=== PATIENT | female | born 1950 | race African-American/Black ===

== ENCOUNTER 2022-12-30 09:17 | Emergency (ER) | payer MEDICARE, MEDICAID, SELFPAY ==
--- NOTE | ~2022-12-30 | XR_ITS ---
Left elbow Technique: AP, oblique, and lateral views were obtained. Clinical History: Pain Findings: There is severe osteoarthritis throughout the elbow joint. Small elbow joint effusion. Subt le fracture of the radial neck is difficult to completely excluded given the osteoarthritic change an d spurring present. Vascular calcifications are present. 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 Subtle radial neck fracture is very difficult to exclude due to the degenerative change present, with the presence of joint effusion. Consider follow-up exam or MR to further evaluate for fracture, as i ndicated. Reviewed, dictated and finalized at location M. 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 Subtle radial neck fracture is very difficult to exclude due to the degenerativ e change present, with the presence of joint effusion. Consider follow-up exam or MR to further evaluate for fracture, as indicated.
--- NOTE | ~2022-12-30 | CT_ITS ---
Noncontrast CT scan of the cervical spine Technique: Multiple contiguous axial [address] images of the cervical spine were obtained and rec onstructed in 2D sagittal and coronal planes on the acquisition scanner. Dose reduction technique was used on this scan by utilizing automated exposure control, adjustment of the mA and/or kV according to patient size. The dose-length product (DLP) was 380.15 mGy-cm. Clinical History: Pain Findings: No fractures or dislocations. There is moderate degenerative disc change at C5-C6. Probabl e mild bilateral neural foraminal narrowing at C5-C6. Probable disc osteophyte complex at C5-C6, with mild canal stenosis. No prevertebral soft tissue swelling. Possible partially imaged right pleural effusion at the right lung apex. Impression: No fracture or subluxation of the cervical spine. Degenerative change, predominantly at C5-C6, as detailed above. Possible partially imaged right pleural effusion versus right pleural thickening. Reviewed, dictated and finalized at [facility]. Impression: No fracture or subluxation of the cervical spine. Degenerative change, predominantly at C5-C6, as detailed above. Possible partially imaged right pleural effusion versus right pleural thickenin g.
--- NOTE | ~2022-12-30 | CT_ITS ---
Non-contrast Head CT History: Pain Technique: Axial non-contrast imaging of the brain was performed. Dose reduction technique was used on this scan by utilizing automated exposure control and iterative reconstruction technique. The dose -length product (DLP) was 605.33 mGy-cm. Findings: There is no evidence of intracranial hemorrhage, mass lesion, or acute infarct. Brain par enchyma appears normal. The ventricles and subarachnoid spaces are normal in size. The calvarium ap pears normal. The visualized paranasal sinuses and mastoid air cells are clear. Impression: No significant abnormality seen. Reviewed, dictated and finalized at location . Impression: No significant abnormality seen.
[2022-12-30 09:19] VITALS: BP 157/49; PULSE 66; RESP 16; TEMP 36.6; O2SAT 98
--- NOTE | 2022-12-30 09:19 | ECG_ITS ---
Measurements Intervals [place] Rate: 67 P: 25 RI: 186 QRS: -5 QRSD: 128 T: 30 QT: 413 QTc: 439 Interpretive Statements SINUS RHYTHM VOLTAGE CRITERIA FOR LVH [MEETS CRITERIA IN ONE OF: R(aVL), S(V1), R(V5), R(V5/V6)+S(V1)] ABNORMAL ECG NO PREVIOUS ECG AVAILABLE FOR COMPARISON Electronically Signed On 12-30-2022 14:51:15 CDT by Lion Flores M.D.
--- NOTE | 2022-12-30 09:27 | ED.FALL ---
HPI - Fall General Chief Complaint: Fall Stated Complaint: FALL, FROM DIALYSIS Time Seen by Provider: 12/30/22 09:18 History of Present Illness HPI Narrative: Pt from dialysis after removal of 3.5L of fluid. Pt had ground level fall at 0430 this morning and landed on left side. Pt complains of pain in left elbow and back of head and neck. Pt has some pain in her thighs but this started after dialysis. Pt denies CP or SOB. Related Data Allergies Allergy/AdvReac Type Severity Reaction Status Date / Time duloxetine [From Cymbalta] Allergy Rash Verified 12/30/22 09:29 Review of Systems Review of Systems: All systems reviewed & are unremarkable except as noted in HPI and below Exam Const: General: no acute distress Nutritional Appearance: well nourished Orientation/consciousness: patient oriented x3 Limitations: no limitations HENMT: Head: normal to inspection Mouth: Yes Normal oral and palatal mucosa present Neck: Neck: normal visual inspection Other: n midline tenderness some left sided tenderness Chest: Chest palpation & inspection: normal inspection of the chest Resp: Effort & Inspection: normal respiratory effort Auscultation: clear to auscultation bilaterally Cardio: Rate: regular rate Rhythm: regular rhythm GI: Auscultation: normal bowel sounds Skin: General skin exam: normal color Wounds: no wounds Neuro: General: patient oriented x3, moves all extremities and no focal motor deficits Speech: normal speech Extrem: Other: tender left elbow Psych: Mental Status: mental status grossly normal Affect: normal affect Attitude: cooperative Course Vital Signs Vital signs: Vital Signs Temperature 97.9 F 12/30/22 09:19 Pulse Rate 66 12/30/22 09:19 Respiratory Rate 16 12/30/22 09:19 Blood Pressure 157/49 H 12/30/22 09:19 Pulse Oximetry 98 12/30/22 09:19 Oxygen Delivery Room Air 12/30/22 09:19 Temperature 97.9 F 12/30/22 09:19 Pulse Rate 63 12/30/22 12:55 Respiratory Rate 18 12/30/22 12:55 Blood Pressure 158/51 H 12/30/22 12:55 Pulse Oximetry 99 12/30/22 12:55 Oxygen Delivery Room Air 12/30/22 09:19 MDM - Fall MDM Narrative Medical decision making narrative: complaints all related to fall. pt has no sob or cp so will not order labs but will get x ray of left elbow and CT of head and C spine. c spine oa, brain ok, elbow x ray shows OA no definite fx but possible radial head difficult to exclude. pt does have some tenderness to radial head on exam so will sling and have follow up with pcp for recheck and possible MRI if still having pain. will prescribe pain meds and muscle relaxers. ECG Data EKG #1: Interpretation: nsr rate 67, moderate intraventricular conduction delay, lvh no prior ekg for comparison Discharge Plan Discharge Clinical Impression: Neck strain Patient Disposition: Home, Self-Care Condition: Stable Instructions: Antibiotic Form, Cervical Strain (DC), Elbow Sprain (ED) Additional Instructions: sling for comfort. follow up with PCP for recheck of elbow in 7 days. Prescriptions: New acetaminophen-codeine 300-15 mg tablet 1 tablet PO Q8H PRN (Reason: pain) Qty: 10 0RF cyclobenzaprine 5 mg tablet 5 mg PO TID PRN (Reason: muscle spasm) Qty: 10 0RF Follow-up/Referrals: Arline Verdugo MD [Physician] - PHYSICIAN,FEDERAL MEDIATOR [Non-Staff] -
[2022-12-30 10:43] VITALS: BP 161/57; PULSE 63; RESP 16; O2SAT 98
[2022-12-30 12:55] VITALS: BP 158/51; PULSE 63; RESP 18; O2SAT 99
== END 2022-12-30 13:29 | disposition home or self-care (01) ==
PROVIDERS: Emergency Provider Emergency Medicine
DX: S16.1XXA Strain of muscle, fascia and tendon at neck level, initial encounter (principal); S59.902A Unspecified injury of left elbow, initial encounter; Z99.2 Dependence on renal dialysis; M81.0 Age-related osteoporosis without current pathological fracture; W18.30XA Fall on same level, unspecified, initial encounter
CPT/HCPCS: 70450; 72125; 73080; 93005; 99284; A4565

== ENCOUNTER 2023-03-07 09:47 | Emergency (ER) | payer MEDICARE, MEDICAID, SELFPAY ==
[2023-03-07] VITALS (9 sets, daily range): BP systolic 169–185; BP diastolic 55–75; PULSE 71–82; RESP 11–18; TEMP 36.6; O2SAT 96–100
--- NOTE | ~2023-03-07 | CT_ITS ---
EXAMINATION: CT BRAIN W/O DATE: 03/07/2023 10:31 INDICATION: Vertigo TECHNIQUE: Computed tomography (CT) of the head was performed without intravenous contrast. The dose- length product was 605.33 mGy-cm. CT dated 12/30/2022 COMPARISON: CT dated 12/30/2022 FINDINGS: Normal brain parenchymal volume for age. Normal romero-white differentiation. No acute intrac ranial hemorrhage, infarction, mass or mass effect. There are scattered mild periventricular and subc ortical white matter changes, most likely related to small vessel ischemic disease (microangiopathy). No ventriculomegaly or midline shift. Midline sagittal images demonstrate a normal corpus callosum, c raniovertebral junction and sella turcica. Basilar cisterns are patent. Paranasal sinuses and mastoids are pneumatized. No depressed skull fractures. IMPRESSION: 1. No acute intracranial abnormality. Reviewed, dictated and finalized at location A. TRICAL AND INSTRUMENT ENGINEER
--- NOTE | 2023-03-07 09:58 | ED.GENADULT ---
HPI - General Adult General Chief complaint: Dizziness Stated complaint: dizzy History of Present Illness HPI narrative: 73-year-old female presenting to the emergency department for evaluation for onset of vertigo. Patient does have a prior history of vertigo and states while she was at dialysis she had onset of dizziness that she felt was similar to her vertigo. Patient states that when she closes her eyes symptoms do improve. Patient denies any recent cough cold fevers falls or injuries Related Data Allergies Allergy/AdvReac Type Severity Reaction Status Date / Time duloxetine [From Cymbalta] Allergy Rash Verified 12/30/22 09:29 Review of Systems Review of Systems: All systems reviewed & are unremarkable except as noted in HPI and below Exam Narrative: APPEARANCE: Well appearing, no pain, no distress, well-nourished. HEAD: normocephalic, atraumatic. EYES: PERRLA/EOMI, conjunctivae clear. NOSE: Normal no drainage NECK: Supple. No adenopathy, no masses. RESPIRATORY: Airway patent, respirations nonlabored. Clear to auscultation bilaterally, no rales, rhonchi, wheezing. CARDIOVASCULAR: Regular rate and rhythm without murmurs rubs or gallops. ABDOMINAL: Soft, nontender, nondistended, normal bowel sounds MUSCULOSKELETAL: Moves all extremities. Strength/ROM intact, No edema, No calf tenderness. NEURO: Alert. Cranial nerves II through XII intact. Grossly intact SKIN: Warm, dry. Normal Color Course Course Emergency Course: 73-year-old female presenting to the emergency department for onset of vertigo. Patient was treated with 25 mg of p.o. meclizine. Patient states that the dizziness did resolve with the meclizine. Patient denies any symptoms of vertigo at this time. Patient was afebrile with no leukocytosis and a stable hemoglobin of 10.7. Patient does do dialysis and patient's CMP is as expected. Patient was negative for influenza RSV and for COVID. Head CT showed no acute intracranial abnormality. Patient reports he feels improved and is comfortable the plan for discharge to home. All questions concerns were addressed Vital Signs Vital signs: Vital Signs Temperature 97.9 F 03/07/23 10:02 Pulse Rate 77 03/07/23 10:02 Respiratory Rate 18 03/07/23 10:02 Blood Pressure 181/55 H 03/07/23 10:02 Pulse Oximetry 100 12/29/23 10:02 Oxygen Delivery Room Air 03/07/23 10:02 Temperature 97.9 F 03/07/23 15:01 Pulse Rate 71 03/07/23 15:01 Respiratory Rate 16 03/07/23 15:01 Blood Pressure 181/67 H 03/07/23 15:01 Pulse Oximetry 100 03/07/23 13:51 Oxygen Delivery Room Air 03/07/23 10:02 Medical Decision Making Differential Diagnosis Differential Diagnosis: Central vertigo, benign positional vertigo, peripheral vertigo, dizziness Vital Signs Vital Signs: Vital Signs Temperature 97.9 F 03/07/23 10:02 Pulse Rate 77 03/07/23 10:02 Respiratory Rate 18 03/07/23 10:02 Blood Pressure 181/55 H 03/07/23 10:02 Pulse Oximetry 100 03/07/23 10:02 Oxygen Delivery Room Air 03/07/23 10:02 Temperature 97.9 F 03/07/23 15:01 Pulse Rate 71 03/07/23 15:01 Respiratory Rate 16 03/07/23 15:01 Blood Pressure 181/67 H 03/07/23 15:01 Pulse Oximetry 100 03/07/23 13:51 Oxygen Delivery Room Air 03/07/23 10:02 Lab Data Lab results reviewed: Yes I reviewed the patient's lab results. 03/07/23 10:45 03/07/23 10:45 Labs: Lab Results 03/07/23 Range/Units 10:45 WBC 5.5 (4.5-10.0) K/mm3 RBC 3.62 L (4.2-5.4) M/mm3 Hgb 10.7 L (12.0-15.0) g/dL Hct 34.1 L (37.0-47.0) % MCV 94.2 (80-100) fl MCH 29.6 (26-34) pg MCHC 31.4 L (32-36) g/dl RDW 14.1 (11.5-14.5) % Plt Count 170 (150-375) k/mm3 MPV 9.5 (7.4-10.4) fl Immature Gran % (Auto) 0.4 (0-0.5) % Neut % (Auto) 69.3 (45.5-73.1) % Lymph % (Auto) 14.3 L (18.3-44.2) % [place] % (Auto) 10.1 H (2.6-8.5) % Eos % (Auto) 5.2 H (0-4.4) % Baso
[2023-03-07] MEDS: MECLIZINE HCL 25 MG TABLET PO (10:37)
[2023-03-07 11:01] LABS: Basophils Percent Auto 0.7 % (0.2-1.2); Eosinophils Absolute Auto 0.3 K/mm3 (0-0.3); Eosinophils Percent Auto 5.2 % (0-4.4); Hematocrit 34.1 % (37.0-47.0); Hemoglobin 10.7 g/dL (12.0-15.0); Immature Granulocyte Absolute 0.02 K/mm3 (0.00-0.031); Immature Granulocyte Percent A 0.4 % (0-0.5); Lymphocytes Absolute Auto 0.79 K/mm3 (0.9-3.2); Lymphocytes Percent Auto 14.3 % (18.3-44.2); Mean Corpuscular HGB Conc 31.4 g/dl (32-36); Mean Corpuscular Hemoglobin 29.6 pg (26-34); Mean Corpuscular Volume 94.2 fl (80-100); Mean Platelet Volume 9.5 fl (7.4-10.4); Monocytes Absolute Auto 0.6 K/mm3 (0.1-0.6); Monocytes Percent Auto 10.1 % (2.6-8.5); Neutrophils Absolute Auto 3.8 K/mm3 (1.3-6.7); Neutrophils Percent Auto 69.3 % (45.5-73.1); Platelet Count Result 170 k/mm3 (150-375); Red Blood Count 3.62 M/mm3 (4.2-5.4); Red Cell Distribution Width 14.1 % (11.5-14.5); White Blood Count 5.5 K/mm3 (4.5-10.0)
[2023-03-07 11:15] LABS: Alanine Aminotransferase 16 U/L (6-35); Albumin Level 4.3 g/dL (3.5-5.1); Alkaline Phosphatase 71 U/L (38-126); Anion Gap 12 mmol/L (8-16); Aspartate Amino Transferase 37 U/L (14-36); Bilirubin,Total 0.8 mg/dL (0.2-1.3); Blood Urea Nitrogen 46 mg/dL (7-17); Calcium 9.6 mg/dL (8.4-10.2); Carbon Dioxide 31 mmol/L (22-30); Chloride 95 mmol/L (98-107); Estimated CRCL calculation 8 ml/min; Estimated Glomerular Filt Rate 8; Glucose 119 mg/dL (65-110); Potassium 4.1 mmol/L (3.4-5.0); Sodium 138 mmol/L (137-145)
[2023-03-07 11:36] LABS: Influenza A QL RT-PCR Negative (Negative); Influenza B QL RT-PCR Negative (Negative); RSV RNA, RT-PCR Negative (Negative); SARS-CoV-2 RNA PCR Negative (Negative)
[2023-03-07] MEDS: ACETAMINOPHEN 325 MG TABLET 650 MG PO (15:20)
== END 2023-03-07 15:26 | disposition home or self-care (01) ==
PROVIDERS: Emergency Provider Emergency Medicine
DX: H81.10 Benign paroxysmal vertigo, unspecified ear (principal); Z20.822 Contact with and (suspected) exposure to COVID-19
CPT/HCPCS: 36415; 70450; 80053; 85025; 87637; 99284; A9270

== ENCOUNTER 2023-04-29 20:50 | Inpatient (IN) | payer MEDICARE, MEDICAID, SELFPAY ==
[2023-04-29] VITALS (18 sets, daily range): BP systolic 160–175; BP diastolic 51–74; PULSE 81–156; RESP 19–35; TEMP 36.6–36.9; O2SAT 92–99
--- NOTE | ~2023-04-29 | XR_ITS ---
EXAMINATION: XR chest 1V portable DATE: 04/29/2023 21:11 INDICATION: COVID-19 pneumonia. TECHNIQUE: A single frontal view of the chest was obtained. COMPARISON: None. FINDINGS: There are mild airspace opacities in right mid and lower lung zones. No pleural effusion or pneumothorax. The heart size is normal. There is a vascular stent in left upper limb. There is a vas cular stent in left chest. IMPRESSION: 1. Mild airspace opacities in right mid and lower lung zones, consistent with atelectasis versus pneu monia versus mild pulmonary edema. Reviewed, dictated and finalized at location E. ITE RENEWAL INSPECTOR IMPRESSION: 1. Mild airspace opacities in right mid and lower lung zones, consistent with a telectasis versus pneumonia versus mild pulmonary edema.
--- NOTE | ~2023-04-29 | CT_ITS ---
EXAMINATION: CTA chest PE protocol DATE: 04/29/2023 22:19 INDICATION: Hypoxia. TECHNIQUE: Computed tomography angiography (CTA) of the chest was performed with 100 mL Omnipaque-350 intravenous contrast timed to evaluate the pulmonary arteries. Coronal maximum intensity projection 3D-reconstructions were created by the technologist. Automated exposure control and iterative reconst ruction technique were employed. The dose-length product was 552.41 mGy-cm. COMPARISON: None. FINDINGS: There is smooth septal thickening, consistent with mild pulmonary edema. Calcified right alonzo ng nodules and calcified right hilar lymph nodes are consistent with old granulomatous disease. There is a cluster of centrilobular nodules in right lower lobe. There is mild atelectasis versus scarring in anterior segment right upper lobe. There are small pleural effusions. The heart size is normal. T here are coronary artery calcifications. No pericardial effusion. There is no pulmonary embolus. Ther e are widespread arterial calcifications. There is a 17 mm mass in right adrenal gland. There is a pa tent stent in left subclavian and brachiocephalic veins. There are bridging endplate osteophytes at m ultiple levels in the spine, consistent with diffuse idiopathic skeletal hyperostosis (DISH). There i s mild thoracic spondylosis. IMPRESSION: 1. No pulmonary embolus. 2. Mild pulmonary edema. 3. Small pleural effusions. 4. Cluster of centrilobular nodules in right lung lower lobe, consistent with mild infection. 5. 17 mm mass in right adrenal gland. In the absence of known malignancy, this finding is likely an a denoma. Reviewed, dictated and finalized at location E. T SPECIALIST IMPRESSION: 1. No pulmonary embolus. 2. Mild pulmonary edema. 3. Small pleural effusions. 4. Cluster of centrilobular nodules in right lung lower lobe, consistent with m ild infection. 5. 17 mm mass in right adrenal gland. In the absence of known malignancy, this finding is likely an adenoma.
--- NOTE | 2023-04-29 20:48 | PC.NURSE ---
unable to collect UA as patient does not produce urine. provider aware
--- NOTE | 2023-04-29 21:09 | ED.GENADULT ---
HPI - General Adult General Chief complaint: Shortness of Breath/Dyspnea Stated complaint: SOB, MISSED HD, COVID+, HTN History of Present Illness HPI narrative: 73-year-old female presenting to the emergency department for evaluation of increased generalized weakness cough and shortness of breath. Patient began feeling poorly on Friday in the symptoms worsened through Friday. Patient reports her symptoms were so bad that on Friday she was not able to present to her dialysis. Patient does dialysis on Friday and Friday. Patient follows up with Dr. Turner in [place]. Patient was hypoxic when EMS arrived. Patient's oxygenation was improved at rest in bed. Patient did report some shortness of breath that improve, patient denies any chest pain. Related Data Home Medications Medication Instructions Recorded Confirmed amlodipine 10 mg-benazepril 40 mg 1 cap PO DAILY 04/30/23 04/30/23 capsule carvedilol 12.5 mg tablet 12.5 mg PO BID 04/30/23 04/30/23 gabapentin 100 mg capsule 200 mg PO DAILY 04/30/23 04/30/23 vitamin B complex-vitamin C-folic 1 tablet PO DAILY 04/30/23 04/30/23 acid 0.8 mg tablet (Shannan-Aubree) Allergies Allergy/AdvReac Type Severity Reaction Status Date / Time duloxetine [From Cymbalta] Allergy Rash Verified 04/29/23 20:48 Review of Systems Review of Systems: All systems reviewed & are unremarkable except as noted in HPI and below PMFSH Past Medical History Medical History (Updated 04/30/23 @ 15:28 by Demi Flores MD) End-stage renal disease on hemodialysis Social History Social History Smoking status: Never smoker Alcohol intake: never Substance use: never Substance use type: does not use Do You Feel Safe in your Home?: Yes Lack of Transportation: No Lack of Food: Never True Current Housing: I Have Housing Concerned About Future Housing: No Difficulty Paying Gas/Electric Bills: No Difficulty Paying for Meds: No Currently Unemployed: No Education: High School Diploma/GED Difficulty w/ Childcare or Family Care: No Spiritual care concerns: No Exam Narrative: APPEARANCE: Well appearing, no pain, no distress, well-nourished. HEAD: normocephalic, atraumatic. EYES: PERRLA/EOMI, conjunctivae clear. NOSE: Normal no drainage EARS:TMS clear with good light reflex. THROAT: Pharynx clear, no exudate. NECK: Supple. No adenopathy, no masses. RESPIRATORY: Airway patent, respirations nonlabored. Clear to auscultation bilaterally, no rales, rhonchi, wheezing. CARDIOVASCULAR: Regular rate and rhythm without murmurs rubs or gallops. ABDOMINAL: Soft, nontender, nondistended, normal bowel sounds MUSCULOSKELETAL: Moves all extremities. Strength/ROM intact, No edema, No calf tenderness. NEURO: Alert. Cranial nerves II through XII intact. Good gait. Good coordination SKIN: Warm, dry. Normal Color PSYCHIATRIC: Normal affect/mood. Course Course Emergency Course: 73-year-old female history chronic renal failure on dialysis, patient does not make urine. Patient did miss her dialysis on Friday. Patient was mildly hypoxic in the emergency department but did improve on oxygenation. Patient is afebrile with no leukocytosis. Patient does have a hemoglobin of 9.3 with a previous baseline of 10.7. He on patient's CMP her potassium was 5.2 with an elevated BUN and creatinine. Patient was treated with albuterol, bicarb and Lokelma for the hyperkalemia. CT scan was ordered to rule out for pulmonary embolism due to the mild tachycardia and hypoxia along with COVID and D-dimer was elevated, CTA was ordered and showed no evidence of pulmonary embolism but did show concern for underlying infection. Blood cultures were ordered and patient was started on antibiotics. Nephrology was consulted and they did feel they would be able to do dialysis tomorrow. Case discussed with hospitalist and patient was accepted for admission to the IMU. Vital Signs Vital signs: Vital Sign
[2023-04-29 21:29] LABS: Basophils Percent Auto 0.2 % (0.2-1.2); Eosinophils Absolute Auto 0.2 K/mm3 (0-0.3); Eosinophils Percent Auto 3.7 % (0-4.4); Hematocrit 29.5 % (37.0-47.0); Hemoglobin 9.3 g/dL (12.0-15.0); Immature Granulocyte Absolute 0.02 K/mm3 (0.00-0.031); Immature Granulocyte Percent A 0.4 % (0-0.5); Lymphocytes Absolute Auto 0.47 K/mm3 (0.9-3.2); Lymphocytes Percent Auto 8.6 % (18.3-44.2); Mean Corpuscular HGB Conc 31.5 g/dl (32-36); Mean Corpuscular Hemoglobin 30.3 pg (26-34); Mean Corpuscular Volume 96.1 fl (80-100); Mean Platelet Volume 9.7 fl (7.4-10.4); Monocytes Absolute Auto 0.8 K/mm3 (0.1-0.6); Monocytes Percent Auto 13.8 % (2.6-8.5); Neutrophils Percent Auto 73.3 % (45.5-73.1); Platelet Count Result 120 k/mm3 (150-375); Red Blood Count 3.07 M/mm3 (4.2-5.4); Red Cell Distribution Width 14.3 % (11.5-14.5); White Blood Count 5.4 K/mm3 (4.5-10.0)
[2023-04-29] MEDS: ALBUTEROL SULFATE NEB 2.5 MG/3 ML INH INHALATION (21:30)
[2023-04-29 21:39] LABS: INR 1.1; Prothrombin Time 14.6 Seconds (11.1-14.7)
[2023-04-29 21:40] LABS: Partial Thromboplastin Time 30.8 SECONDS (22.3-36.8)
[2023-04-29 21:41] LABS: Alanine Aminotransferase 10 U/L (6-35); Albumin Level 3.8 g/dL (3.5-5.1); Alkaline Phosphatase 67 U/L (38-126); Anion Gap 13 mmol/L (8-16); Aspartate Amino Transferase 26 U/L (14-36); Bilirubin,Total 0.7 mg/dL (0.2-1.3); Blood Urea Nitrogen 89 mg/dL (7-17); Calcium 9.4 mg/dL (8.4-10.2); Carbon Dioxide 26 mmol/L (22-30); Chloride 102 mmol/L (98-107); Glucose 170 mg/dL (65-110); Potassium 5.2 mmol/L (3.4-5.0); Sodium 141 mmol/L (137-145)
[2023-04-29 21:53] LABS: Estimated CRCL calculation 4 ml/min; Estimated Glomerular Filt Rate 3
--- NOTE | 2023-04-29 22:51 | PM.IMHP ---
H&P: HPI History of Present Illness Date/Time: 04/29/23 22:51 Chief Complaint: shortness of breath Narrative: This is a 75-year-old female with past medical history significant for end-stage renal disease on hemodialysis, Friday, patient presents to emergency room due to shortness of breath, generalized weakness, body aches and pains, poor appetite. Missed her last dialysis treatment. Patient was found to have lung infiltrate and tested positive for COVID-19 patient also was found to have a potassium of 5.2. Ruled out for pulmonary embolism with negative CTA. Patient has been admitted for further evaluation management and treatment. EXAMINATION: XR chest 1V portable DATE: 04/29/2023 21:11 INDICATION: COVID-19 pneumonia. TECHNIQUE: A single frontal view of the chest was obtained. COMPARISON: None. FINDINGS: There are mild airspace opacities in right mid and lower lung zones. No pleural effusion or pneumothorax. The heart size is normal. There is a vascular stent in left upper limb. There is a vascular stent in left chest. IMPRESSION: 1. Mild airspace opacities in right mid and lower lung zones, consistent with atelectasis versus pneumonia versus mild pulmonary edema. EXAMINATION: CTA chest PE protocol DATE: 04/29/2023 22:19 INDICATION: Hypoxia. TECHNIQUE: Computed tomography angiography (CTA) of the chest was performed with 100 mL Omnipaque-350 intravenous contrast timed to evaluate the pulmonary arteries. Coronal maximum intensity projection 3D-reconstructions were created by the technologist. Automated exposure control and iterative reconstruction technique were employed. The dose-length product was 552.41 mGy-cm. COMPARISON: None. FINDINGS: There is smooth septal thickening, consistent with mild pulmonary edema. Calcified right lung nodules and calcified right hilar lymph nodes are consistent with old granulomatous disease. There is a cluster of centrilobular nodules in right lower lobe. There is mild atelectasis versus scarring in anterior segment right upper lobe. There are small pleural effusions. The heart size is normal. There are coronary artery calcifications. No pericardial effusion. There is no pulmonary embolus. There are widespread arterial calcifications. There is a 17 mm mass in right adrenal gland. There is a patent stent in left subclavian and brachiocephalic veins. There are bridging endplate osteophytes at multiple levels in the spine, consistent with diffuse idiopathic skeletal hyperostosis (DISH). There is mild thoracic spondylosis. IMPRESSION: 1. No pulmonary embolus. 2. Mild pulmonary edema. 3. Small pleural effusions. 4. Cluster of centrilobular nodules in right lung lower lobe, consistent with mild infection. 5. 17 mm mass in right adrenal gland. In the absence of known malignancy, this finding is likely an adenoma. Review of Systems Review of Systems: Shortness of breath, generalized weakness Constitutional: Constitutional: Reports weakness Eyes: Eyes: Denies change in vision ENT: Denies dysphagia, Denies dizziness and Denies odynophagia Cardiovascular: Cardiovascular: Denies chest pain at rest, Denies lightheadedness, Denies radiating jaw, neck or arm pain and Denies palpitations Respiratory: Respiratory: Reports dyspnea on exertion Gastrointestinal: Gastrointestinal: Denies abdominal pain, Denies diarrhea, Denies nausea and Denies vomiting Genitourinary: Genitourinary: Denies dysuria Musculoskeletal: Musculoskeletal: Reports muscle weakness Integumentary/Breasts: Skin/Breast: Denies rash Neurologic: Denies focal weakness and Denies Sensory deficit (Neuro) Psychiatric: Psychiatric: Reports no additional psychiatric complaints and Reports as per HPI Endocrine: Endocrine: Denies increase in ring/shoe/hat size, Denies polyphagia, Denies polydipsia and Denies palpitations Hematologic/Lymphatic: Hematologic/Lymphatic: Reports no additional hematologic
[2023-04-29] MEDS: SODIUM BICARBONATE 8.4% 50 MEQ/50 ML SYRINGE IV PUSH (22:52)
[2023-04-29] MEDS: dexAMETHasone SOD PHOS INJ 10 MG/ML 1 ML VIAL IV PUSH (22:53)
--- NOTE | 2023-04-29 23:35 | PC.NURSE ---
Patient is unable to produce urine at all
[2023-04-29 23:43] LABS: Hepatitis B Surface Antigen Negative (Negative)
[2023-04-29] MEDS: AZITHROMYCIN 500 MG/NS 250 ML 500 MG/250 ML BAG 250 MG IVPB (23:59)
[2023-04-30] VITALS (32 sets, daily range): BP systolic 136–206; BP diastolic 47–97; PULSE 61–78; RESP 16–22; TEMP 36.1–37.1; O2SAT 92–100; BMI 36.6
[2023-04-30 00:01] LABS: Hepatitis B Surface Anti Res Positive
[2023-04-30 00:20] LABS: Influenza A QL RT-PCR Negative (Negative); Influenza B QL RT-PCR Negative (Negative); RSV RNA, RT-PCR Negative (Negative); SARS-CoV-2 RNA PCR Positive (Negative)
--- NOTE | 2023-04-30 01:19 | ADMGEN ---
This patient, Maria Alejandra Tolentino, was admitted to IMU Room 200-01. Patient/family oriented to hospital policies and general routines including ID bracelet, bed and alarms, visiting hours, pain management, procedures, bathroom and other care routines, personal items, smoking policy, room service/diet, and visiting hours. Information on how to activate the Rapid Response Team has been discussed. Patient/Family are encouraged to report perceived risks to care and to ask questions if they do not understand what they are told or what they should do.
[2023-04-30 02:47] LABS: MRSA (PCR) NOT DETECTED (NOT DETECTE)
[2023-04-30] MEDS: carvediloL 12.5 MG TABLET PO ×2 (08:43→22:36)
[2023-04-30] MEDS: amLODIPine BESYLATE 5 MG TABLET 10 MG BY MOUTH (08:44)
[2023-04-30] MEDS: GABAPENTIN 100 MG CAPSULE 200 MG PO (08:44)
[2023-04-30] MEDS: VITAMIN B CMPLX/VIT C/FOLIC AC 1 CAPSULE 1 CAP PO (08:44)
[2023-04-30] MEDS: lisinopriL 20 MG TABLET 40 MG PO (08:44)
--- NOTE | 2023-04-30 10:56 | PC.NURSE ---
Pt to dialysis today at 0900
--- NOTE | 2023-04-30 12:20 | PM.CNNEP ---
Assessment and Plan Assessment and plan (1) End stage renal disease: Code(s): N18.6 - End stage renal disease Status: Chronic Assessment and Plan: HD today continue Fri/Fri/Friday outpatient dialysis schedule follow electrolytes, volume status, and clearance (2) Pneumonia: Code(s): J18.9 - Pneumonia, unspecified organism Status: Acute Assessment and Plan: suggested by admission imaging on antibiotics follow culture data (3) Hyperkalemia: Code(s): E87.5 - Hyperkalemia Status: Acute Assessment and Plan: due to missed dialysis treatment s/p medical management further correction with dialysis follow repeat levels (4) COVID-19: Code(s): U07.1 - COVID-19 Status: Acute Assessment and Plan: positive testing on admission no evidence of hypoxia currently continue supportive therapy (5) Hypertension: Code(s): I10 - Essential (primary) hypertension Status: Chronic Assessment and Plan: elevated at this time dialysis should help resume home medications follow trend of hemodynamics (6) Anemia: Code(s): D64.9 - Anemia, unspecified Status: Chronic Assessment and Plan: due to ESRD Epogen with HD follow H/H I will continue follow patient with you while she remains hospitalized to make further recommendations as deemed necessary. Thank you for allowing me to participate in the care of this patient. History of Present Illness Reason for Consult Consult date: 04/30/23 Reason for consult: end stage renal disease Chief Complaint Chief complaint: Hyperkalemia, Hypoxia, COVID, Pneumonia History of Present Illness Narrative: The patient is a 73-year-old female with a past medical history as outlined below who presented to [facility] Emergency room with complaints of generalized weakness and shortness of breath. The patient states that she started feeling poorly last Friday with these symptoms in association with cough. The symptoms continued to worsen throughout the weekend and by Friday, she reported that she felt quite bad. Due to these symptoms, she did not go to her scheduled dialysis treatment on Friday. Given these ongoing symptoms, EMS was called and she was transported to the emergency room for further assessment. By the time of EMS arrival, she was reportedly hypoxic and supplemental oxygen was applied. However by the time of her arrival to the emergency room, her oxygenation normalized and she did not require any further supplemental oxygen. She once again indoor strict shortness of breath but denied any other acute symptoms. Routine blood test demonstrated labs consistent with her known history of end-stage renal disease but with a potassium was mildly elevated 5.2. Viral testing demonstrated she was COVID-19 positive as well. Given the persistence of her shortness of breath, she underwent a CT angiogram of the chest which did not demonstrate any evidence of a pulmonary embolism. Given her constellation of symptoms, she was admitted the hospital for further evaluation and therapy. Since her admission, she received medical management for her mildly elevated potassium level and was impaired least art on antibiotics for the presumption of pneumonia. She was not initiated any type of therapy with regard to her COVID-19 infection since she was not hypoxic. Renal consultation was requested due to her known history of end-stage renal disease. The patient normally dialyzes on a Friday, Friday, Friday schedule at [facility] under the care of Dr. Shaw. as mentioned above, she missed her dialysis treatment on Friday due to how poorly she felt with the symptoms that led to her presentation to the emergency room. In spite of her mildly elevated potassium level, she had no critical electrolyte abnormalities, acid-base disorder, or evidence of volume overl
[2023-04-30] MEDS: EPOETIN ALFA-EPBX 10,000 UNITS/ML VIAL 10000 UNITS IV PUSH (12:30)
--- NOTE | 2023-04-30 15:05 | PM.IMPN ---
Progress Note: A&P Assessment and Plan (1) Pneumonia: Code(s): J18.9 - Pneumonia, unspecified organism Status: Acute Assessment and Plan: Patient started on Rocephin and Zithromax Cultures in progress (2) End-stage renal disease on hemodialysis: Code(s): N18.6 - End stage renal disease; Z99.2 - Dependence on renal dialysis Status: Acute Assessment and Plan: Nephrology consult Dialysis soon creat is over 13 (3) COVID-19: Code(s): U07.1 - COVID-19 Status: Acute Assessment and Plan: Supportive care (4) Hypoxia: Code(s): R09.02 - Hypoxemia Status: Acute Assessment and Plan: Supplemental oxygen by nasal cannula pt not needing oxygen overnite (5) Acute hyperkalemia: Code(s): E87.5 - Hyperkalemia Status: Acute Assessment and Plan: potassium over 5 pt had lokelma and sodium bicarbondate drip Subjective Date/time seen: 04/30/23 15:05 Interval history: 75-year-old female with past medical history significant for end-stage renal disease on hemodialysis, Friday, patient presents to emergency room due to shortness of breath, generalized weakness, body aches and pains, poor appetite.? Missed her last dialysis treatment.? Patient was found to have lung infiltrate and tested positive for COVID-19 patient also was found to have a potassium of 5.2.? Ruled out for pulmonary embolism with negative CTA. Pt has pneumonia and COVID Pt is not needing any oxygen Pt creat is high and potassium is over 5 nephrology consulted Review of Systems Review of Systems: Shortness of breath, generalized weakness Exam Const: General: comfortable, no acute distress, well developed, alert, awake, ill appearing chronically and average body habitus Nutritional Appearance: average body habitus Orientation/consciousness: patient oriented x3 Resp: Effort & Inspection: normal respiratory effort and able to speak in complete sentences Auscultation: crackles, rales and wheezes Cardio: Jugular venous distension: no JVD Rate: regular rate Rhythm: regular rhythm Heart sounds: S1 normal heart sound present and S2 normal heart sound present Skin: Rashes: no rashes Wounds: no wounds Neuro: General: patient oriented x3 and CN's II-XI intact bilaterally Cranial nerves: Yes CN's II-XII intact bilaterally and Yes Equal, round and reactive pupils present Cognition (Neuro): normal cognition Speech: normal speech Gait exam (Neuro): Normal gait present Motor exam (neuro): 5/5 motor strength present throughout Sensory Exam: No Sensory deficit (Neuro) Extrem: General: normal to inspection, full ROM, no joint enlargement and no pedal edema Objective Data Vital Signs Vital Signs: Vital Signs - 24 hr 04/29/23 20:32 04/29/23 20:42 04/29/23 20:38 Temperature 36.9 C Pulse Rate 93 106 H Respiratory Rate 27 H 35 H Blood Pressure 174/60 H Pulse Oximetry 94 99 92 Oxygen Delivery Room Air Nasal Cannula Oxygen Flow Rate 1 04/29/23 20:39 04/29/23 20:45 04/29/23 21:30 Temperature Pulse Rate 98 119 H 114 H Respiratory Rate 22 H 28 H 22 H Blood Pressure 174/60 H Pulse Oximetry 96 98 Oxygen Delivery Oxygen Flow Rate 04/29/23 21:43 04/29/23 21:44 04/29/23 20:46 Temperature Pulse Rate 129 H 106 H Respiratory Rate 22 H 28 H Blood Pressure 163/63 H Pulse Oximetry 96 99 Oxygen Delivery Room Air Oxygen Flow Rate 04/29/23 21:02 04/29/23 21:16 04/29/23 21:26 Temperature Pulse Rate 81 112 H 93 Respiratory Rate 30 H 26 H 25 H Blood Pressure 173/51 H Pulse Oximetry 97 96 Oxygen Delivery Oxygen Flow Rate 04/29/23 21:30 04/29/23 21:31 04/29/23 21:53 Temperature Pulse Rate 117 H 116 H 156 H Respiratory Rate 25 H 25 H 26 H Blood Pressure 175/58 H Pulse Oximetry 93 96 97 Oxygen Delivery Oxygen Flow Rate 04/29/23 22:02 04/29/23 22:20 04/29/23 22:30 Temperature
[2023-04-30] MEDS: BENZONATATE 100 MG CAPSULE PO ×2 (16:58→22:36)
[2023-04-30] MEDS: SODIUM ZIRCONIUM CYCLOSILICATE 10 GM POWD.PACK PO (16:58)
[2023-04-30] MEDS: AZITHROMYCIN 500 MG/NS 250 ML 500 MG/250 ML BAG 250 MG IVPB (22:37)
[2023-05-01] VITALS (17 sets, daily range): BP systolic 117–152; BP diastolic 40–57; PULSE 59–78; RESP 16–24; TEMP 36.1–37; O2SAT 95–100
[2023-05-01] MEDS: VANCOMYCIN 1,750 MG/NS 500 ML 1,750 MG/500 ML BAG 250 MG IVPB (00:42)
[2023-05-01 04:55] LABS: Basophils Percent Auto 0.6 % (0.2-1.2); Eosinophils Percent Auto 0.9 % (0-4.4); Hematocrit 27.5 % (37.0-47.0); Hemoglobin 8.7 g/dL (12.0-15.0); Immature Granulocyte Absolute 0.03 K/mm3 (0.00-0.031); Immature Granulocyte Percent A 0.9 % (0-0.5); Lymphocytes Absolute Auto 0.62 K/mm3 (0.9-3.2); Lymphocytes Percent Auto 18.3 % (18.3-44.2); Mean Corpuscular HGB Conc 31.6 g/dl (32-36); Mean Corpuscular Hemoglobin 30.1 pg (26-34); Mean Corpuscular Volume 95.2 fl (80-100); Mean Platelet Volume 10.3 fl (7.4-10.4); Monocytes Absolute Auto 0.5 K/mm3 (0.1-0.6); Monocytes Percent Auto 14.5 % (2.6-8.5); Neutrophils Absolute Auto 2.2 K/mm3 (1.3-6.7); Neutrophils Percent Auto 64.8 % (45.5-73.1); Platelet Count Result 121 k/mm3 (150-375); Red Blood Count 2.89 M/mm3 (4.2-5.4); White Blood Count 3.4 K/mm3 (4.5-10.0)
[2023-05-01 05:23] LABS: Alanine Aminotransferase 12 U/L (6-35); Albumin Level 3.4 g/dL (3.5-5.1); Alkaline Phosphatase 59 U/L (38-126); Anion Gap 11 mmol/L (8-16); Aspartate Amino Transferase 27 U/L (14-36); Bilirubin,Total 0.5 mg/dL (0.2-1.3); Blood Urea Nitrogen 48 mg/dL (7-17); Carbon Dioxide 29 mmol/L (22-30); Chloride 98 mmol/L (98-107); Estimated CRCL calculation 7 ml/min; Estimated Glomerular Filt Rate 6; Glucose 173 mg/dL (65-110); Magnesium 2.4 mg/dL (1.6-2.3); Phosphorus 6.4 mg/dL (2.5-4.5); Sodium 138 mmol/L (137-145)
[2023-05-01 05:36] LABS: Potassium 3.9 mmol/L (3.4-5.0)
[2023-05-01] MEDS: carvediloL 12.5 MG TABLET PO ×2 (10:52→21:32)
[2023-05-01] MEDS: BENZONATATE 100 MG CAPSULE PO ×2 (10:52→17:13)
[2023-05-01] MEDS: GABAPENTIN 100 MG CAPSULE 200 MG PO (10:53)
[2023-05-01] MEDS: VITAMIN B CMPLX/VIT C/FOLIC AC 1 CAPSULE 1 CAP PO (10:53)
[2023-05-01] MEDS: amLODIPine BESYLATE 5 MG TABLET 10 MG BY MOUTH (10:53)
[2023-05-01] MEDS: lisinopriL 20 MG TABLET 40 MG PO (10:54)
--- NOTE | 2023-05-01 12:39 | P.CDI_ITS ---
CDI Query Clarification Request Documentation in the medical record indicates that this patient has been d iagnosed as having Pneumonia and COVID. Positive COVID swab (04/29/23). Patient is receiving Rocephin 1 GM Q24hrs and Azithromycin 500 mg Q24hrs. Please clarify if there is a cause and effect relationship between COVID and pneumonia. * There is a cause and effect relationship between COVID and pneumonia. * There is not a cause and effect relationship between COVID and pneumonia. * Unknown if there is a cause and effect relationship between COVID and pneumonia. <Lyndsay Hernandez RN - Last Filed: 05/01/23 12:47> Documentation in the medical record indicates that this patient has been diagnos ed as having Pneumonia and COVID. Positive COVID swab (04/29/23). Patient is receiving Rocephin 1 GM Q24hrs and Azithromycin 500 mg Q24hrs. Please clarify if there is a cause and effect relationship between COVID and pneumonia. * There is a cause and effect relationship between COVID and pneumonia. * * Unknown if there is a cause and effect relationship between COVID and pneumonia. <Danielle Vergara MD - Last Filed: 05/01/23 15:25> Clarified Diagnosis Clarified Diagnosis: There is not a cause and effect relationship between COVID and pneumonia. <Danielle Vergara MD - Last Filed: 05/01/23 15:25>
--- NOTE | 2023-05-01 13:25 | P.PNNP_ITS ---
Progress Note: A&P Assessment and Plan (1) End stage renal disease: Code(s): N18.6 - End stage renal disease Status: Chronic Assessment and Plan: * HD tomorrow * continue Fri/Fri/Friday outpatient dialysis schedule * follow electrolytes, volume status, and clearance (2) Pneumonia: Code(s): J18.9 - Pneumonia, unspecified organism Status: Acute Assessment and Plan: * suggested by admission imaging * on antibiotics * follow culture data (3) Hyperkalemia: Code(s): E87.5 - Hyperkalemia Status: Acute Assessment and Plan: * resolved * due to missed dialysis treatment * s/p medical management and dialysis * follow repeat levels (4) COVID-19: Code(s): U07.1 - COVID-19 Status: Acute Assessment and Plan: * positive testing on admission * no evidence of hypoxia currently * continue supportive therapy (5) Hypertension: Code(s): I10 - Essential (primary) hypertension Status: Chronic Assessment and Plan: * reasonable control * resumed on home medications * follow trend of hemodynamics (6) Anemia: Code(s): D64.9 - Anemia, unspecified Status: Chronic Assessment and Plan: * due to ESRD * Epogen with HD * follow H/H Will continue to follow. Subjective Date/time seen: 05/01/23 13:25 Interval history: Follow-up for end stage renal disease. Tolerated hemodialysis treatment yesterday without any issues or problems; no issues/events overnight or earlier this morning; breathing/respiratory status seems stable; no apparent distress voiced. Exam Narrative: General: elderly but WD/WN female in NAD Heart: normal S1 and S2; no rub Lungs: clear to auscultation Abdomen: soft, nontender, nondistended, positive bowel sounds Extremities: no cyanosis or clubbing; no edema Skin: warm and dry Objective Data Vital Signs Vital Signs: Vital Signs Temp Pulse Resp BP Pulse Ox O2 Del Method 05/01/23 12:00 61 05/01/23 10:00 65 05/01/23 08:00 66 05/01/23 12:00 98.2 F 62 16 117/40 L 97 05/01/23 11:42 Room Air 05/01/23 08:00 Room Air 05/01/23 10:52 66 05/01/23 07:47 98.4 F 64 20 152/52 H 100 05/01/23 04:00 97.1 F L 63 16 151/50 H 96 05/01/23 05:49 62 05/01/23 04:00 72 16 95 Room Air 05/01/23 04:00 72 05/01/23 02:00 74 05/01/23 00:00 97.4 F L 65 16 137/57 L 95 04/30/23 23:23 69 16 98 Room Air 04/30/23 23:23 68 04/30/23 22:00 68 04/30/23 20:00 69 16 98 Room Air 04/30/23 20:00 69 04/30/23 22:36 78 04/30/23 20:00 97 F L 69 16 153/53 H 98 04/30/23 18:00 68 04/30/23 16:00 69 04/30/23 16:00 98.3 F 71 18 159/59 H 92 Intake/Output Intake/Output: Intake & Output 04/28/23 04/29/23 04/30/23 05/01/23 23:59 23:59 23:59 23:59 Intake Total 50 1820 1400 Output Total 2500 Balance 50 -680 1400 Meds/Results Medications: Active Medications
--- NOTE | 2023-05-01 13:25 | PM.PNNEP ---
Progress Note: A&P Assessment and Plan (1) End stage renal disease: Code(s): N18.6 - End stage renal disease Status: Chronic Assessment and Plan: HD tomorrow continue Fri/Fri/Friday outpatient dialysis schedule follow electrolytes, volume status, and clearance (2) Pneumonia: Code(s): J18.9 - Pneumonia, unspecified organism Status: Acute Assessment and Plan: suggested by admission imaging on antibiotics follow culture data (3) Hyperkalemia: Code(s): E87.5 - Hyperkalemia Status: Acute Assessment and Plan: resolved due to missed dialysis treatment s/p medical management and dialysis follow repeat levels (4) COVID-19: Code(s): U07.1 - COVID-19 Status: Acute Assessment and Plan: positive testing on admission no evidence of hypoxia currently continue supportive therapy (5) Hypertension: Code(s): I10 - Essential (primary) hypertension Status: Chronic Assessment and Plan: reasonable control resumed on home medications follow trend of hemodynamics (6) Anemia: Code(s): D64.9 - Anemia, unspecified Status: Chronic Assessment and Plan: due to ESRD Epogen with HD follow H/H Will continue to follow. Subjective Date/time seen: 05/01/23 13:25 Interval history: Follow-up for end stage renal disease. Tolerated hemodialysis treatment yesterday without any issues or problems; no issues/events overnight or earlier this morning; breathing/respiratory status seems stable; no apparent distress voiced. Exam Narrative: General: elderly but WD/WN female in NAD Heart: normal S1 and S2; no rub Lungs: clear to auscultation Abdomen: soft, nontender, nondistended, positive bowel sounds Extremities: no cyanosis or clubbing; no edema Skin: warm and dry Objective Data Vital Signs Vital Signs: Vital Signs Temp Pulse Resp BP Pulse Ox O2 Del Method 05/01/23 12:00 61 05/01/23 10:00 65 05/01/23 08:00 66 05/01/23 12:00 98.2 F 62 16 117/40 L 97 05/01/23 11:42 Room Air 05/01/23 08:00 Room Air 05/01/23 10:52 66 05/01/23 07:47 98.4 F 64 20 152/52 H 100 05/01/23 04:00 97.1 F L 63 16 151/50 H 96 05/01/23 05:49 62 05/01/23 04:00 72 16 95 Room Air 05/01/23 04:00 72 05/01/23 02:00 74 05/01/23 00:00 97.4 F L 65 16 137/57 L 95 04/30/23 23:23 69 16 98 Room Air 04/30/23 23:23 68 04/30/23 22:00 68 04/30/23 20:00 69 16 98 Room Air 04/30/23 20:00 69 04/30/23 22:36 78 04/30/23 20:00 97 F L 69 16 153/53 H 98 04/30/23 18:00 68 04/30/23 16:00 69 04/30/23 16:00 98.3 F 71 18 159/59 H 92 Intake/Output Intake/Output: Intake & Output 04/28/23 04/29/23 04/30/23 05/01/23 23:59 23:59 23:59 23:59 Intake Total 50 1820 1400 Output Total 2500 Balance 50 -680 1400 Meds/Results Medications: Active Medications Generic Name Dose Route Start Last Admin Trade Name Freq PRN Reason Stop Dose Admin Amlodipine Besylate 10 mg 04/30/23 09:00 05/01/23 10:53 Amlodipine Besylate 5 Mg Tablet BY MOUTH 10 mg DAILY BECKA Administration Benzonatate 100 mg 04/30/23 15:30 05/01/23 10:52 Benzonatate 100 Mg Capsule PO 100 mg TID BECKA Administration Carvedilol 12.5 mg 04/30/23 09:00 05/01/23 10:52 Carvedilol 12.5 Mg Tablet PO 12.5 mg Q12HR BECKA Administration Gabapentin 200 mg 04/30/23 09:00 05/01/23 10:53 Gabapentin 100 Mg Capsule PO 200 mg DAILY BECKA Administration Ceftriaxone Sodium 1 gm in 50 mls @ 100 mls/hr 04/30/23 22:00 04/30/23 23:05 Rocephin 1 Gm/Ns 50 Ml IVPB Infused Q24H BECKA Infusion Azithromycin 500 mg in 250 mls @ 250 mls/hr 04/30/23 22:00 04/30/23 23:35 Zithromax IVPB Infused Q24H BECKA Infusion Albumin Human 50 mls @ 999 mls/hr 04/30/
--- NOTE | 2023-05-01 13:52 | PM.DS ---
DS: Discharge Diagnosis Discharge Diagnosis (1) Pneumonia: Code(s): J18.9 - Pneumonia, unspecified organism Status: Acute Assessment and Plan: Patient started on Rocephin and Zithromax Cultures in progress (2) End-stage renal disease on hemodialysis: Code(s): N18.6 - End stage renal disease; Z99.2 - Dependence on renal dialysis Status: Inactive Assessment and Plan: Nephrology consult Dialysis soon creat is over 13 (3) COVID-19: Code(s): U07.1 - COVID-19 Status: Acute Assessment and Plan: Supportive care (4) Hypoxia: Code(s): R09.02 - Hypoxemia Status: Acute Assessment and Plan: Supplemental oxygen by nasal cannula pt not needing oxygen overnite (5) Acute hyperkalemia: Code(s): E87.5 - Hyperkalemia Status: Acute Assessment and Plan: potassium over 5 pt had lokelma and sodium bicarbondate drip DS: Summary Time Spent with Patient Time attestation: Total time spent providing and/or coordinating discharge services: Exam Const: General: comfortable, no acute distress, well developed, alert, awake, ill appearing chronically and average body habitus Nutritional Appearance: average body habitus Orientation/consciousness: patient oriented x3 Cardio: Jugular venous distension: no JVD Rate: regular rate Rhythm: regular rhythm Heart sounds: S1 normal heart sound present and S2 normal heart sound present Neuro: General: patient oriented x3 and CN's II-XI intact bilaterally Cranial nerves: Yes CN's II-XII intact bilaterally and Yes Equal, round and reactive pupils present Cognition (Neuro): normal cognition Speech: normal speech Gait exam (Neuro): Normal gait present Motor exam (neuro): 5/5 motor strength present throughout Sensory Exam: No Sensory deficit (Neuro) Extrem: General: normal to inspection, full ROM, no joint enlargement and no pedal edema DS: Data Data Completed and Pending Labs on day of discharge: Labs from last 24 hours 05/01/23 04:09 WBC 3.4 L RBC 2.89 L Hgb 8.7 L Hct 27.5 L MCV 95.2 MCH 30.1 MCHC 31.6 L RDW 14.0 Plt Count 121 L MPV 10.3 Immature Gran % (Auto) 0.9 H Neut % (Auto) 64.8 Lymph % (Auto) 18.3 Frontier % (Auto) 14.5 H Eos % (Auto) 0.9 Baso % (Auto) 0.6 Lymph # (Auto) 0.62 L Frontier # (Auto) 0.5 Eos # (Auto) 0.0 Baso # (Auto) 0.0 Abs Immat Gran (auto) 0.03 Absolute Neuts (auto) 2.2 Absolute Nucleated RBC 0.0 Nucleated RBC % 0.0 Sodium 138 Potassium 3.9 Chloride 98 Carbon Dioxide 29 Anion Gap 11 BUN 48 H D Creatinine 7.80 H Estim Creat Clear Calc 7 Estimated GFR 6 L Glucose 173 H Calcium 9.0 Phosphorus 6.4 H Magnesium 2.4 H Total Bilirubin 0.5 AST 27 ALT 12 Alkaline Phosphatase 59 Total Protein 7.0 Albumin 3.4 L Preliminary micro results at discharge 04/29/23 23:33 Blood Culture - Preliminary Blood Gram positive cocci cluster is 04/29/23 23:33 Blood Culture - Preliminary Blood Discharge Plan Discharge Attending physician on discharge: Danielle Vergara Consulting providers: Saji Cowart; Demi Flores Discharging Clinician: Danielle Vergara Anticipated Discharge Date/Time: 05/01/23 13:50 Activity: as tolerated Diet: renal Discharge Instructions: Hyperkalemia COVID self isolate until 05/06 wear mask wash hands avoid people continue with dialysis sessions Patient Instructions: Antibiotic Form, COVID-19 (Coronavirus Disease 2019) (DC) Stand Alone Forms: General Discharge Information Follow-up/Referrals: Saji Cowart MD [Physician] - Discharge Medications: New benzonatate 100 mg Capsule 100 mg PO TID Qty: 30 0RF azithromycin [Zithromax Z-Gary] 250 mg tablet See Rx Instructions .ROUTE .COMPLEX Qty: 6 0RF Rx Instructions: For 250 mg dose pack: take 500 mg today (day 1), then 250 mg for 4 days (days 2-5) Continued meclizine 25 mg tablet
--- NOTE | 2023-05-01 13:56 | PM.IMPN ---
Progress Note: A&P Assessment and Plan (1) Pneumonia: Code(s): J18.9 - Pneumonia, unspecified organism Status: Acute Assessment and Plan: Pt is on iv rocephin and zithromax day 2 Awaiting BC full report Pt feels better Hopeful Dc soon (2) End-stage renal disease on hemodialysis: Code(s): N18.6 - End stage renal disease; Z99.2 - Dependence on renal dialysis Status: Inactive Assessment and Plan: Pt had dilaysis yesterday Continue to watch bmp in hospital (3) COVID-19: Code(s): U07.1 - COVID-19 Status: Acute Assessment and Plan: Supportive care Tessalon Perles oral fluids (4) Acute hyperkalemia: Code(s): E87.5 - Hyperkalemia Status: Acute Assessment and Plan: Pt has lokelma ordered and is receiving dialysis Pt had sodium bicarbondate drip on arrival Nephrology rounding Pt had dialysis yesterday Subjective Date/time seen: 05/01/23 13:56 Interval history: 75-year-old female with past medical history significant for end-stage renal disease on hemodialysis, Friday, patient presents to emergency room due to shortness of breath, generalized weakness, body aches and pains, poor appetite.? Missed her last dialysis treatment.? Patient was found to have lung infiltrate and tested positive for COVID-19 patient also was found to have a potassium of 5.2.? Ruled out for pulmonary embolism with negative CTA. Pt has pneumonia and COVID Pt is not needing any oxygen Feels better awaiting blood culture reports Pt had dialysis yesterday, creat and potassium are looking better today Nephrology rounding Review of Systems Review of Systems: PT feels better Exam HENMT: Head: normal to inspection, normocephalic and atraumatic Ears: hearing grossly normal bilaterally Face/Nose/Sinus: normal facial exam Face and sinus: normal facial exam Neck: Neck: full ROM, no lymphadenopathy and no JVD Thyroid: thyroid normal Lymphatic: no lymphadenopathy noted Resp: Effort & Inspection: normal respiratory effort and able to speak in complete sentences Auscultation: crackles, rales and wheezes Skin: Rashes: no rashes Wounds: no wounds Objective Data Vital Signs Vital Signs: Vital Signs - 24 hr 04/30/23 14:00 04/30/23 16:00 04/30/23 16:00 Temperature 36.8 C Pulse Rate 68 71 69 Respiratory Rate 18 Blood Pressure 159/59 H Pulse Oximetry 92 Oxygen Delivery 04/30/23 18:00 04/30/23 20:00 04/30/23 22:36 Temperature 36.1 C L Pulse Rate 68 69 78 Respiratory Rate 16 Blood Pressure 153/53 H Pulse Oximetry 98 Oxygen Delivery 04/30/23 20:00 04/30/23 20:00 04/30/23 22:00 Temperature Pulse Rate 69 69 68 Respiratory Rate 16 Blood Pressure Pulse Oximetry 98 Oxygen Delivery Room Air 04/30/23 23:23 04/30/23 23:23 05/01/23 00:00 Temperature 36.3 C L Pulse Rate 68 69 65 Respiratory Rate 16 16 Blood Pressure 137/57 L Pulse Oximetry 98 95 Oxygen Delivery Room Air 05/01/23 02:00 05/01/23 04:00 05/01/23 04:00 Temperature Pulse Rate 74 72 72 Respiratory Rate 16 Blood Pressure Pulse Oximetry 95 Oxygen Delivery Room Air 05/01/23 05:49 05/01/23 04:00 05/01/23 07:47 Temperature 36.2 C L 36.9 C Pulse Rate 62 63 64 Respiratory Rate 16 20 Blood Pressure 151/50 H 152/52 H Pulse Oximetry 96 100 Oxygen Delivery 05/01/23 10:52 05/01/23 08:00 05/01/23 11:42 Temperature Pulse Rate 66 Respiratory Rate Blood Pressure Pulse Oximetry Oxygen Delivery Room Air Room Air 05/01/23 12:00 Temperature 36.8 C Pulse Rate 62 Respiratory Rate 16 Blood Pressure 117/40 L Pulse Oximetry 97 Oxygen Delivery Intake/Output Intake/Output: Intake & Output 04/28/23 04/29/23 04/30/23 05/01/23 23:59 23:59 23:59 23:59 Intake Total 50 1820 1400 Output Total 2500 Balance 50 -680 1400 Meds/Results Medications: Active Medication
[2023-05-01] MEDS: AZITHROMYCIN 500 MG/NS 250 ML 500 MG/250 ML BAG 250 MG IVPB (21:32)
[2023-05-02] VITALS (25 sets, daily range): BP systolic 119–162; BP diastolic 41–109; PULSE 59–70; RESP 12–24; TEMP 36–37; O2SAT 96–98
[2023-05-02 04:08] LABS: Basophils Percent Auto 0.7 % (0.2-1.2); Eosinophils Absolute Auto 0.2 K/mm3 (0-0.3); Hematocrit 28.2 % (37.0-47.0); Immature Granulocyte Absolute 0.07 K/mm3 (0.00-0.031); Immature Granulocyte Percent A 1.7 % (0-0.5); Lymphocytes Absolute Auto 1.08 K/mm3 (0.9-3.2); Lymphocytes Percent Auto 25.5 % (18.3-44.2); Mean Corpuscular HGB Conc 31.9 g/dl (32-36); Mean Corpuscular Hemoglobin 30.4 pg (26-34); Mean Corpuscular Volume 95.3 fl (80-100); Mean Platelet Volume 10.5 fl (7.4-10.4); Monocytes Absolute Auto 0.5 K/mm3 (0.1-0.6); Monocytes Percent Auto 12.1 % (2.6-8.5); Neutrophils Absolute Auto 2.3 K/mm3 (1.3-6.7); Platelet Count Result 134 k/mm3 (150-375); Red Blood Count 2.96 M/mm3 (4.2-5.4); White Blood Count 4.2 K/mm3 (4.5-10.0)
[2023-05-02 04:31] LABS: Alanine Aminotransferase 12 U/L (6-35); Albumin Level 3.4 g/dL (3.5-5.1); Alkaline Phosphatase 56 U/L (38-126); Anion Gap 10 mmol/L (8-16); Aspartate Amino Transferase 23 U/L (14-36); Bilirubin,Total 0.5 mg/dL (0.2-1.3); Blood Urea Nitrogen 65 mg/dL (7-17); Calcium 8.9 mg/dL (8.4-10.2); Carbon Dioxide 28 mmol/L (22-30); Chloride 97 mmol/L (98-107); Estimated CRCL calculation 6 ml/min; Estimated Glomerular Filt Rate 5; Glucose 126 mg/dL (65-110); Magnesium 2.4 mg/dL (1.6-2.3); Phosphorus 7.4 mg/dL (2.5-4.5); Potassium 4.3 mmol/L (3.4-5.0); Sodium 135 mmol/L (137-145)
--- NOTE | 2023-05-02 09:00 | PC.NURSE ---
Pt off floor via bed to dialysis transported by RN and nevin.
--- NOTE | 2023-05-02 09:13 | PM.IMPN ---
Progress Note: A&P Assessment and Plan (1) Pneumonia: Code(s): J18.9 - Pneumonia, unspecified organism Status: Acute (2) End-stage renal disease on hemodialysis: Code(s): N18.6 - End stage renal disease; Z99.2 - Dependence on renal dialysis Status: Inactive (3) COVID-19: Code(s): U07.1 - COVID-19 Status: Acute (4) Acute hyperkalemia: Code(s): E87.5 - Hyperkalemia Status: Acute Plan 75-year-old female with past medical history significant for end-stage renal disease on hemodialysis, Friday, patient presents to emergency room due to shortness of breath, generalized weakness, body aches and pains, poor appetite.? Missed her last dialysis treatment.? Patient was found to have lung infiltrate and tested positive for COVID-19. Patient also was found to have a potassium of 5.2.? Ruled out for pulmonary embolism with negative CTA. CTA did show mild pulmonary edema with small pleural effusion. Cluster of centrilobular nodules in right lower lobe consistent with mild infection. 17 mm mass in right adrenal likely adenoma Pt has pneumonia and COVID currently on Rocephin and azithromycin for pneumonia. Not hypoxic remains afebrile, mildly hypertensive Nephrology consulted for inpatient hemodialysis Hyperkalemia resolved Mild chronic anemia, mild thrombocytopenia which remains stable Bacteremia noted on admission with Gram-positive cocci in clusters isolated from anaerobic bottle only. Another set remains negative. Continue to follow for final identification. Suspect contamination not on anti particular pertaining to this bacteria. DVT prophylaxis: Add heparin subcu Subjective Date/time seen: 05/02/23 09:13 Interval history: 75-year-old female with past medical history significant for end-stage renal disease on hemodialysis, Friday, patient presents to emergency room due to shortness of breath, generalized weakness, body aches and pains, poor appetite.? Missed her last dialysis treatment.? Patient was found to have lung infiltrate and tested positive for COVID-19. Patient also was found to have a potassium of 5.2.? Ruled out for pulmonary embolism with negative CTA. CTA did show mild pulmonary edema with small pleural effusion. Cluster of centrilobular nodules in right lower lobe consistent with mild infection. 17 mm mass in right adrenal likely adenoma Pt has pneumonia and COVID currently on Rocephin and azithromycin for pneumonia. Not hypoxic remains afebrile, mildly hypertensive Nephrology consulted for inpatient hemodialysis Hyperkalemia resolved Mild chronic anemia, mild thrombocytopenia which remains stable Bacteremia noted on admission with Gram-positive cocci in clusters isolated from anaerobic bottle only. Another set remains negative. Continue to follow for final identification. Suspect contamination not on anti particular pertaining to this bacteria. DVT prophylaxis: Add heparin subcu Review of Systems Review of Systems: All systems reviewed & are unremarkable except as noted in HPI and below Objective Data Vital Signs Vital Signs: Vital Signs - 24 hr 05/01/23 10:52 05/01/23 11:42 05/01/23 12:00 Temperature 98.2 F Pulse Rate 66 62 Respiratory Rate 16 Blood Pressure 117/40 L Pulse Oximetry 97 Oxygen Delivery Room Air 05/01/23 10:00 05/01/23 12:00 05/01/23 14:00 Temperature Pulse Rate 65 61 63 Respiratory Rate Blood Pressure Pulse Oximetry Oxygen Delivery 05/01/23 16:00 05/01/23 16:00 05/01/23 16:00 Temperature 98.6 F Pulse Rate 61 61 Respiratory Rate 24 H Blood Pressure 124/54 L Pulse Oximetry 97 Oxygen Delivery Room Air 05/01/23 18:00 05/01/23 20:00 05/01/23 21:32 Temperature 97.0 F L Pulse Rate 65 64 78 Respiratory Rate 24 H Blood Pressure 133/44 L Pulse Oximetry 96 Oxygen Delivery 05/01/23 20:00 05/01/23 20:00 05/01/23 22:00 Temperature Pulse Rat
--- NOTE | 2023-05-02 09:45 | PM.PNNEP ---
Progress Note: A&P Assessment and Plan (1) End stage renal disease: Code(s): N18.6 - End stage renal disease Status: Chronic Assessment and Plan: HD today continue Fri/Fri/Friday outpatient dialysis schedule follow electrolytes, volume status, and clearance (2) Pneumonia: Code(s): J18.9 - Pneumonia, unspecified organism Status: Acute Assessment and Plan: suggested by admission imaging on antibiotics follow culture data (3) Hyperkalemia: Code(s): E87.5 - Hyperkalemia Status: Acute Assessment and Plan: resolved due to missed dialysis treatment s/p medical management and dialysis follow repeat levels (4) COVID-19: Code(s): U07.1 - COVID-19 Status: Acute Assessment and Plan: positive testing on admission no evidence of hypoxia currently continue supportive therapy (5) Hypertension: Code(s): I10 - Essential (primary) hypertension Status: Chronic Assessment and Plan: reasonable control resumed on home medications follow trend of hemodynamics (6) Anemia: Code(s): D64.9 - Anemia, unspecified Status: Chronic Assessment and Plan: due to ESRD Epogen with HD follow H/H Will continue to follow. Subjective Date/time seen: 05/02/23 09:45 Interval history: Follow-up for end stage renal disease on hemodialysis. Tolerating hemodialysis treatment at the time of my visit (seen on HD at 9:35AM); no new issues/concerns voiced currently; breathing/respiratory status remains stable; no other events overnight or earlier this morning, Exam Narrative: General: elderly but WD/WN female in NAD Heart: normal S1 and S2; no rub Lungs: clear to auscultation Abdomen: soft, nontender, nondistended, positive bowel sounds Extremities: no cyanosis or clubbing; no edema Skin: warm and intact Objective Data Vital Signs Vital Signs: Vital Signs Temp Pulse Resp BP Pulse Ox O2 Del Method 05/02/23 09:45 62 149/68 H 05/02/23 09:30 61 136/66 05/02/23 09:15 62 140/67 05/02/23 09:06 62 146/64 H 05/02/23 08:55 97.2 F L 63 16 162/66 H 96 05/02/23 08:00 Room Air 05/02/23 08:00 63 05/02/23 07:43 97.1 F L 70 22 H 158/109 H 98 05/02/23 06:00 68 05/02/23 04:38 97.6 F 60 24 H 121/50 L 97 05/02/23 04:00 61 24 H 98 Room Air 05/02/23 04:00 61 05/02/23 02:00 59 L 05/01/23 23:52 97.6 F 59 L 24 H 133/49 L 98 05/01/23 23:29 72 24 H 96 Room Air 05/01/23 23:29 76 05/01/23 22:00 64 05/01/23 20:00 63 24 H 96 Room Air 05/01/23 20:00 63 05/01/23 21:32 78 05/01/23 20:00 97.0 F L 64 24 H 133/44 L 96 05/01/23 18:00 65 05/01/23 16:00 61 05/01/23 16:00 Room Air 05/01/23 16:00 98.6 F 61 24 H 124/54 L 97 05/01/23 14:00 63 05/01/23 12:00 61 05/01/23 12:00 98.2 F 62 16 117/40 L 97 Intake/Output Intake/Output: Intake & Output 04/29/23 04/30/23 05/01/23 05/02/23 23:59 23:59 23:59 23:59 Intake Total 50 1820 2060 120 Output Total 2500 0 Balance 50 -680 2060 120 Meds/Results Medications: Active Medications Generic Name Dose Route Start Last Admin Trade Name Holly PRCarroll Reason Stop Dose Admin Amlodipine Besylate 10 mg 04/30/23 09:00 05/01/23 10:53 Amlodipine Besylate 5 Mg Tablet BY MOUTH 10 mg DAILY BECKA Administration Benzonatate 100 mg 04/30/23 15:30 05/01/23 17:13 Benzonatate 100 Mg Capsule PO 100 mg TID BECKA Administration Carvedilol 12.5 mg 04/30/23 09:00 05/01/23 21:32 Carvedilol 12.5 Mg Tablet PO 12.5 mg Q12HR BECKA Administration Epoetin Juan Alberto-epbx 10,000 units 05/02/23 20:00 05/02/23 10:41 Epoetin Juan Alberto-Epbx 10,000 Units/Ml Vial IV PUSH 05/02/23 20:01 10,000 units ONCE ONE Administration Gabapentin 200 mg 04/30/23 09:00 05/01/23
[2023-05-02] MEDS: EPOETIN ALFA-EPBX 10,000 UNITS/ML VIAL 10000 UNITS IV PUSH (10:41)
[2023-05-02] MEDS: SODIUM CHLORIDE 0.9% IV 1,000 ML 999 ML IV CONT (10:42)
[2023-05-02] MEDS: lisinopriL 20 MG TABLET 40 MG PO (13:18)
[2023-05-02] MEDS: BENZONATATE 100 MG CAPSULE PO ×2 (13:19→15:53)
[2023-05-02] MEDS: GABAPENTIN 100 MG CAPSULE 200 MG PO (13:19)
[2023-05-02] MEDS: amLODIPine BESYLATE 5 MG TABLET 10 MG BY MOUTH (13:19)
[2023-05-02] MEDS: VITAMIN B CMPLX/VIT C/FOLIC AC 1 CAPSULE 1 CAP PO (13:20)
[2023-05-02] MEDS: carvediloL 12.5 MG TABLET PO (13:22)
--- NOTE | 2023-05-02 14:07 | PM.DS ---
DS: Admitting Diagnosis Discharge Date 05/02/2023 Admitting Diagnosis Shortness of breath DS: Discharge Diagnosis Discharge Diagnosis (1) Pneumonia: Code(s): J18.9 - Pneumonia, unspecified organism Status: Acute (2) End-stage renal disease on hemodialysis: Code(s): N18.6 - End stage renal disease; Z99.2 - Dependence on renal dialysis Status: Inactive (3) COVID-19: Code(s): U07.1 - COVID-19 Status: Acute (4) Acute hyperkalemia: Code(s): E87.5 - Hyperkalemia Status: Acute DS: Summary Hospital Course Hospital Course: 75-year-old female with past medical history significant for end-stage renal disease on hemodialysis, Friday, patient presents to emergency room due to shortness of breath, generalized weakness, body aches and pains, poor appetite.? Missed her last dialysis treatment.? Patient was found to have lung infiltrate and tested positive for COVID-19.? Patient also was found to have a potassium of 5.2.? Ruled out for pulmonary embolism with negative CTA.? CTA did show mild pulmonary edema with small pleural effusion.? Cluster of centrilobular nodules in right lower lobe consistent with mild infection.? 17 mm mass in right adrenal likely adenoma Pt has pneumonia and COVID currently on Rocephin and azithromycin for pneumonia. Switched to oral antibiotics at discharge Not hypoxic remains afebrile, mildly hypertensive Nephrology consulted for inpatient hemodialysis Hyperkalemia resolved with dialysis Mild chronic anemia, mild thrombocytopenia which remains stable Bacteremia noted on admission with Gram-positive cocci in clusters isolated from anaerobic bottle only.? Another set remains negative.? Finalized as Staph hominis Suspect contamination not on anti particular pertaining to this bacteria. DVT prophylaxis:? Add heparin subcu Time Spent with Patient Time attestation: Total time spent providing and/or coordinating discharge services: 35 minutes Exam Narrative: APPEARANCE: Well appearing, no pain, no distress, well-nourished. HEAD: normocephalic, atraumatic. EYES: PERRLA/EOMI, conjunctivae clear. NOSE: Normal no drainage RESPIRATORY: Airway patent, respirations nonlabored. Clear to auscultation bilaterally, no rales, rhonchi, wheezing. CARDIOVASCULAR: Regular rate and rhythm without murmurs rubs or gallops. ABDOMINAL: Soft, nontender, nondistended, normal bowel sounds MUSCULOSKELETAL: Moves all extremities. Strength/ROM intact, No edema, No calf tenderness. NEURO: Alert. Cranial nerves II through XII intact. No focal neuro deficit SKIN: Warm, dry. Normal Color PSYCHIATRIC: Normal affect/mood. DS: Data Data Completed and Pending Labs on day of discharge: Labs from last 24 hours 05/02/23 03:49 WBC 4.2 L RBC 2.96 L Hgb 9.0 L Hct 28.2 L MCV 95.3 MCH 30.4 MCHC 31.9 L RDW 14.0 Plt Count 134 L MPV 10.5 H Immature Gran % (Auto) 1.7 H Neut % (Auto) 55.0 Lymph % (Auto) 25.5 [place] % (Auto) 12.1 H Eos % (Auto) 5.0 H Baso % (Auto) 0.7 Lymph # (Auto) 1.08 [place] # (Auto) 0.5 Eos # (Auto) 0.2 Baso # (Auto) 0.0 Abs Immat Gran (auto) 0.07 H Absolute Neuts (auto) 2.3 Absolute Nucleated RBC 0.0 Nucleated RBC % 0.0 Sodium 135 L Potassium 4.3 Chloride 97 L Carbon Dioxide 28 Anion Gap 10 BUN 65 H D Creatinine 9.40 H Estim Creat Clear Calc 6 Estimated GFR 5 L Glucose 126 H Calcium 8.9 Phosphorus 7.4 H Magnesium 2.4 H Total Bilirubin 0.5 AST 23 ALT 12 Alkaline Phosphatase 56 Total Protein 7.0 Albumin 3.4 L Preliminary micro results at discharge 04/29/23 23:33 Blood Culture - Preliminary Blood Staphylococcus hominis 04/29/23 23:33 Blood Culture - Preliminary Blood Imaging Radiologist's impression: ITS Impressions Chest X-Ray 04/29/23 21:20 IMPRESSION: 1. Mild airspace opacities in right mid and lower lung zones, consistent with atelectasis versus pneumonia versus mild pulmonary
[2023-05-02] MEDS: CEFDINIR 300 MG CAPSULE PO (15:52)
== END 2023-05-02 16:15 | disposition home or self-care (01) | DRG 193 ==
LOC: ANHED 22:57 → ANHIMU 04-30 00:12
PROVIDERS: Internal Medicine Nephrology; Admitting Provider Internal Medicine; Emergency Provider Emergency Medicine; Visit Provider Internal Medicine
DX: J18.9 Pneumonia, unspecified organism (principal); N18.6 End stage renal disease; U07.1 COVID-19; E87.5 Hyperkalemia; Z99.2 Dependence on renal dialysis
CPT/HCPCS: 36415; 71045; 71275; 80053; 83735; 84100; 85025; 85380; 85610; 85730; 86706; 87040; 87181; 87340; 87637; 87641; 94640; 96375; 99285; A9270; G0257; G0378; J0456; J0696; J1100; J3370; J7030; Q5105; Q9967

== ENCOUNTER 2023-06-30 09:07 | Emergency (ER) | payer MEDICARE, MEDICAID, SELFPAY ==
[2023-06-30] VITALS (8 sets, daily range): BP systolic 140–187; BP diastolic 58–107; PULSE 72–82; RESP 12–16; TEMP 36.4; O2SAT 98–100
--- NOTE | 2023-06-30 09:21 | ECG_ITS ---
SEE SCANNED COPY FOR CONFIRMED REPORT MTDD
[2023-06-30 09:37] LABS: Basophils Percent Auto 0.4 % (0.2-1.2); Eosinophils Absolute Auto 0.2 K/mm3 (0-0.3); Eosinophils Percent Auto 3.6 % (0-4.4); Hematocrit 29.7 % (37.0-47.0); Hemoglobin 9.6 g/dL (12.0-15.0); Immature Granulocyte Absolute 0.02 K/mm3 (0.00-0.031); Immature Granulocyte Percent A 0.4 % (0-0.5); Lymphocytes Absolute Auto 0.87 K/mm3 (0.9-3.2); Lymphocytes Percent Auto 16.6 % (18.3-44.2); Mean Corpuscular HGB Conc 32.3 g/dl (32-36); Mean Corpuscular Hemoglobin 31.7 pg (26-34); Mean Platelet Volume 9.8 fl (7.4-10.4); Monocytes Absolute Auto 0.5 K/mm3 (0.1-0.6); Monocytes Percent Auto 10.3 % (2.6-8.5); Neutrophils Absolute Auto 3.6 K/mm3 (1.3-6.7); Neutrophils Percent Auto 68.7 % (45.5-73.1); Platelet Count Result 163 k/mm3 (150-375); Red Blood Count 3.03 M/mm3 (4.2-5.4); Red Cell Distribution Width 14.7 % (11.5-14.5); White Blood Count 5.2 K/mm3 (4.5-10.0)
[2023-06-30 10:02] LABS: Alanine Aminotransferase 15 U/L (6-35); Albumin Level 4.3 g/dL (3.5-5.1); Alkaline Phosphatase 95 U/L (38-126); Anion Gap 9 mmol/L (4-12); Aspartate Amino Transferase 28 U/L (14-36); Bilirubin,Total 0.5 mg/dL (0.2-1.3); Blood Urea Nitrogen 45 mg/dL (7-17); Calcium 9.5 mg/dL (8.4-10.2); Carbon Dioxide 29 mmol/L (22-30); Chloride 100 mmol/L (98-107); Estimated Glomerular Filt Rate 10; Glucose 167 mg/dL (65-110); Potassium 3.5 mmol/L (3.4-5.0); Sodium 138 mmol/L (137-145)
--- NOTE | 2023-06-30 10:14 | PC.NURSE ---
SonDom made aware of pt being in the ED.
--- NOTE | 2023-06-30 10:35 | PC.NURSE ---
Dialysis nurse called to deaccess dialysis shunt in left upper arm.
--- NOTE | 2023-06-30 11:03 | ED.SYNCOPE ---
HPI - Syncope General Chief Complaint: Syncope Stated Complaint: syncope Time Seen by Provider: 06/30/23 10:51 History of Present Illness HPI narrative: Pt had syncopal episode while at dialysis. Pt says she thinks she completed all but last 30 minutes of treatment. Pt denies CP or palpitations prior to event. Pt does admit to having lots of diarrhea recently. Pt denies abdominal pain now. Related Data Home Medications Medication Instructions Recorded Confirmed amlodipine 10 mg-benazepril 40 mg 1 cap PO DAILY 04/30/23 04/30/23 capsule carvedilol 12.5 mg tablet 12.5 mg PO BID 04/30/23 04/30/23 gabapentin 100 mg capsule 200 mg PO DAILY 04/30/23 04/30/23 vitamin B complex-vitamin C-folic 1 tablet PO DAILY 04/30/23 04/30/23 acid 0.8 mg tablet (Shannan-Aubree) Allergies Allergy/AdvReac Type Severity Reaction Status Date / Time duloxetine [From Cymbalta] Allergy Rash Verified 06/30/23 09:21 Review of Systems Review of Systems: All systems reviewed & are unremarkable except as noted in HPI and below PMFSH Past Medical History Medical History (Updated 06/30/23 @ 12:55 by Rodri Fuentes III, DO) End-stage renal disease on hemodialysis Social History Social History Smoking status: Never smoker Alcohol intake: never Substance use: never Substance use type: does not use Do You Feel Safe in your Home?: Yes Lack of Transportation: No Lack of Food: Never True Current Housing: I Have Housing Concerned About Future Housing: No Difficulty Paying Gas/Electric Bills: No Difficulty Paying for Meds: No Currently Unemployed: No Education: High School Diploma/GED Difficulty w/ Childcare or Family Care: No Spiritual care concerns: No Exam Const: General: healthy appearing Nutritional Appearance: well nourished Orientation/consciousness: patient oriented x3 Limitations: no limitations HENMT: Mouth: Yes Normal oral and palatal mucosa present Resp: Effort & Inspection: normal respiratory effort Auscultation: clear to auscultation bilaterally Cardio: Rate: regular rate Rhythm: regular rhythm GI: GI Palp: Yes Soft to palpation and No Tenderness to palpation present (GI) Auscultation: normal bowel sounds Skin: General skin exam: normal color Rashes: no rashes Wounds: no wounds Neuro: General: patient oriented x3, moves all extremities, no meningeal signs, no focal motor deficits and CN's II-XI intact bilaterally Cranial nerves: Yes Nystagmus not present Speech: normal speech Extrem: General: normal to inspection and edema Psych: Mental Status: mental status grossly normal Affect: normal affect Attitude: cooperative Course Vital Signs Vital signs: Vital Signs Temperature 97.6 F 06/30/23 09:19 Pulse Rate 82 06/30/23 09:19 Respiratory Rate 16 06/30/23 09:19 Blood Pressure 140/107 H 06/30/23 09:19 Pulse Oximetry 100 06/30/23 09:19 Temperature 97.6 F 06/30/23 09:19 Pulse Rate 72 06/30/23 15:35 Respiratory Rate 16 06/30/23 15:35 Blood Pressure 181/94 H 06/30/23 15:35 Pulse Oximetry 98 06/30/23 15:35 MDM - Syncope MDM Narrative Medical decision making narrative: cbc and cmp are about baseline, discussed with dr Shaw her highway safety engineer and said ok to go home. Differential Diagnosis Differential diagnosis: Likely syncope due to orthostatic hypotension, vasovagal syncope, dehydration and other (dialysis ) Medical Records Attestation: I reviewed the patient's medical records. Lab Data Attestation: I reviewed the patient's lab results. 06/30/23 09:31 06/30/23 09:31 Labs: Lab Results 06/30/23 Range/Units 09:31 WBC 5.2 (4.5-10.0) K/mm3 RBC 3.03 L (4.2-5.4) M/mm3 Hgb 9.6 L (12.0-15.0) g/dL Hct 29.7 L (37.0-47.0) % MCV 98.0 (80-100) fl MCH 31.7 (26-34) pg MCHC 32.3 (32-36) g/dl RDW 14.7 H (11.5-14.5) % Plt Count 163 (150-375) k/mm3 MPV 9.8 (7.4-10.4) fl Immature Gr
--- NOTE | 2023-06-30 14:30 | PC.NURSE ---
Spoke with daughter Amisha, she will find someone to pick pt up.
[2023-06-30] MEDS: BELLADONNA ALK/PHENOB ELIX 10 ML, MAG HYDROX/ALUMINUM HYD/SIMETH 30 ML, LIDOCAINE HCL 2... PO (14:51)
--- NOTE | 2023-06-30 15:51 | PC.NURSE ---
neon glass blower consult note: Pt brought to HD room in wheelchair for HD needle removal. Pt alert and without issues. Pt denies questions or concerns. Blue needle removed: 4 minutes pressure. Red needle removed: 6 minutes pressure. Sites dressed per policy. Bruit and Thrill present after needles removed. No issues noted. Total time: 15 minutes. ED conveyor line battery charger notified that pt is ready to depart HD room.
== END 2023-06-30 15:40 | disposition home or self-care (01) ==
PROVIDERS: Emergency Provider Emergency Medicine; Referring Provider Emergency Medicine
DX: R55 Syncope and collapse (principal); N18.6 End stage renal disease; Z99.2 Dependence on renal dialysis; R94.31 Abnormal electrocardiogram [ECG] [EKG]
CPT/HCPCS: 36415; 80053; 85025; 93005; 99284; A9270